=== PATIENT | male | born 1955 | race Caucasian/White ===

== ENCOUNTER 2025-04-30 06:06 | Day surgery (SDC) | payer MEDICARE, OTHER, SELFPAY ==
[2025-04-22 08:45] VITALS: BMI 28.8
[2025-04-30] VITALS (10 sets, daily range): BP systolic 105–129; BP diastolic 62–81; PULSE 61–81; RESP 15–20; TEMP 35.6–36.6; O2SAT 96–100; BMI 27.4
--- NOTE | 2025-04-30 | DI.RAD.S_ITS ---
PROCEDURE: XR HIP W PEL IF DONE LT 2V INDICATIONS: TOTAL LEFT HIP TECHNIQUE: 4 intraoperative fluoroscopic views of the hip acquired. COMPARISON: None. FINDINGS: Bones: Intraoperative fluoroscopic images shows left total hip arthroplasty in progress. IMPRESSION: Fluoro guidance was provided intraoperatively for left total hip arthroplasty performed by the ordering physician. Dictated by: Stefano Maxwell M.D. on 04/30/2025 at 11:08 Approved by: Stefano Maxwell M.D. on 04/30/2025 at 11:09
--- NOTE | 2025-04-30 06:00 | DI.RAD.S_ITS ---
PROCEDURE: XR HIP W PEL IF DONE LT 2V INDICATIONS: GABI TECHNIQUE: AP pelvis and lateral view of the hip acquired. COMPARISON: [facility], CR, XR PELVIS WITH LATERAL HIP LEFT, 12/26/2024, 10:11. [facility], CR, XR HIP W PEL LT 2V, 04/30/2025, 8:59. FINDINGS: Interval left total hip arthroplasty. Acute postsurgical subcutaneous gas along the left thigh. Unchanged alignment of right total hip arthroplasty. No hardware failure. No fracture IMPRESSION: Expected post-operative appearance of a hip arthroplasty. Dictated by: Andrews Knott M.D. on 04/30/2025 at 12:45 Approved by: Andrews Knott M.D. on 04/30/2025 at 12:46
[2025-04-30] MEDS: LACTATED RINGERS 1,000 ML 42 ML IV (06:41)
[2025-04-30] MEDS: CELECOXIB 200 MG CAPSULE PO (06:42)
[2025-04-30] MEDS: ACETAMINOPHEN 325 MG TABLET 975 MG PO (06:42)
[2025-04-30] MEDS: VANCOMYCIN 1,000 MG/200 ML PIGGYBACK 200 MG IV (06:42)
--- NOTE | 2025-04-30 07:41 | PM.PREOP ---
Pre-operative Note Interval Note History & Physical reviewed/Exam performed by Physician: Yes Changes to H&P: No
--- NOTE | 2025-04-30 07:42 | PM.OP.1 ---
Operative Date/Time/Diagnoses Date of procedure: 04/30/25 Time of procedure: 08:00 Pre-op diagnosis: Left hip OA Post-op diagnosis: same Procedure & Clinicians Procedure: Left total hip arthroplasty anterior approach Same procedure(s) as scheduled: Yes Indications: The patient has had progressively worsening left hip pain with radiographic changes consistent with arthritis. Non-operative management has failed and the patient has requested total hip replacement. The risks, benefits and alternatives to surgery were discussed with the patient prior to proceeding. Risks discussed included, but were not limited to, failure to relieve pain, leg length discrepancy, dislocation, stiffness, infection, nerve damage, deep venous thrombosis, pulmonary embolism, stroke, coma, heart attack, permanent paralysis and , as well as the potential need for eventual revision of the prosthetic. Surgeon: Karolyn Ovalle Assisted?: Yes Vocational Coordinator: Jack Parsosn Anesthesia Type: General and Spinal Operative Notes Findings: Severe left hip OA, adequate stability Closure Type: primary Specimen(s): none sent Prosthetic devices, grafts, tissues, transplants, or devices: Ovalle and nephew R3 size 54, neutral poly liner, one 6.5 mm screw, anthology size 7 stem standard offset, 36 x +0 femoral head Applied: none Estimated Blood Loss (mL): 250 Blood products transfused: none Procedure in detail: The patient was brought to the operating room. Patient was carefully positioned in the supine position. Time-out was performed and antibiotics were given. Anesthesia was induced. He was positioned in the on the table in order to allow hyperextension of the hip. The left lower extremity was prepped and draped in a standard sterile fashion. An anterior left hip incision was made 1 fingerbreadth lateral to the anterior superior iliac spine and extended distally towards the greater trochanter. Dissection was carried out through skin and subcutaneous tissues. Superficial hemostasis was achieved. The fascia over the tensor fascia rafael was defined and incised with a knife. Two Allis clamps were used to grasp the fascia. Tensor fascia rafael was retracted laterally. A gelpi retractor was placed. Dissection was carried out down along the neck. The circumflex vessels were carefully identified and cauterized with the Aqua Mantis. A PA was used during the procedure and was essential for intraoperative retraction and safe implantation of the components. There was good visualization of the femoral neck. A Cobra was placed superior to the neck and the gluteus fibers were carefully stripped from that superior aspect of the capsule. A 2nd retractor was placed along the inferior aspect of the neck. The rectus insertion along the capsule was partially released. A 3rd retractor that was then gently placed over the rim of the acetabulum under the rectus. Capsule was carefully incised and released from the intertrochanteric line circumferentially superior to the mid sagittal line and inferiorly to the mid sagittal line until the lesser trochanter was palpable. A tag stitch was placed both in the superior and inferior limb of the capsular insertion. Along the acetabulum capsule was also released up to the mid sagittal 12:00 position. A portion of the labrum was resected. A saw was used to perform an osteotomy at the level of the intertrochanteric line and the junction of the superior femoral neck leaving approximately 1 finger breath of residual inferior neck above the lesser trochanter. A 2nd cut was made along the femoral neck at the base of the head and a napkin ring of neck was removed. Corkscrew was placed in the femoral head and the head was removed without difficulty. Retractors were then repositioned around the acetabulum. Residual labrum was resected and additional osteophytes were removed. A reamer that was 4 mm below the templated size was placed by hand in the acetabulum and it was reamed to centralize the acetabulum. It was then reamed up to 2 under the templated size and fluoroscopy was brought in to confirm the position of the reaming and depth of reaming. I reamed 1 under the anticipated size. A trial cup was placed and noted that it was appropriately sized and fluoroscopy confirmed position and depth. The component was open and inserted without difficulty fluoroscopic imaging was used to confirm that the cup had been adequately seated and was well positioned. It was further stabilized with a single screw. Neutral poly liner was placed. The cup was tested and noted to be stable. Attention was then directed to the femur. The femur was gently hyperextended additional capsular release was performed as needed in order to allow adequate visualization of the proximal femur with elevation of the femur. Patient was placed in a hyperextended slightly adducted position with maximum external rotation. Box osteotome was used to check for any residual neck as well as sclerotic bone along the trochanter. Manila pepper was placed in the femur. Additional broaching was performed. Canal finder was used to determine the alignment of the canal and position. Size 1 broach was placed. The canal was then appropriately broached up to the templated size as long as there was adequate stability of the broach and serial advancement of the broach without excessive impingement. Specific attention was directed at avoiding varus attempting to direct the distal aspect of the broach more anteriorly and avoiding excessive anteversion. Trial reduction showed acceptable range of motion, good stability, no posterior impingement, oriental orthodox of leg length and appropriate lateral shuck. I also hyperflexed the hip and checked that there was no impingement anteriorly and there was good stability with flexion, adduction and internal rotation. Marcaine and Exparel were injected. The stem was placed without difficulty. Repeat trial reduction and x-ray showed acceptable overall position, length, and no evidence of the femoral fracture. Final head was placed. Wound was meticulously irrigated with normal saline. The hip was reduced and additional Exparel and Marcaine were injected. The capsule was closed with interrupted nonabsorbable sutures. The fascia of the tensor was closed with interrupted and running Vicryl. No drain was placed. Any tensor fascia rafael muscle that appeared to be contused or injured which was a minimal amount was carefully resected. Capsule around the tensor was injected with Exparel and Marcaine. The skin was closed with barbed stitches for the subcutaneous tissue and skin. We also used surgical glue. The wound was dressed sterilely. Brief Betadine soak was also used and was meticulously irrigated with normal saline. Patient was transferred to recovery room in satisfactory condition. Complications: none Post-operative Condition: stable Disposition: same day surgery Plan for aftercare: The patient will be maintained on a standard total hip replacement protocol with weight bearing as tolerated and anterior hip precautions. The patient will receive Aspirin and sequential compression devices for DVT prophylaxis. The patient will be discharged home when safe for the home environment.
[2025-04-30] MEDS: TRANEXAMIC ACID 1,000 MG VIAL 1000 MG INJ ×2 (08:09→09:54)
--- NOTE | 2025-04-30 08:29 | SUR.OPER ---
Supine on padded Silvis table with bilateral legs secured in padded positioning boots and suspended in positioning spars, operative leg in traction per surgeon. Head on one pillow. Arm on non-operative side secured on padded armboard <90 degrees abduction. Arm on operative side padded and resting across chest then secured with tape over sheet. Padded perineal post in place per surgeon. Dr. Ovalle in room to assist with positioning, all pressure points padded and covered. Final position approved by surgeon
[2025-04-30] MEDS: BUPivacaine 0.25% W/ EPI (PF) 30 ML VIAL 60 ML INJ (08:32)
[2025-04-30] MEDS: LACTATED RINGERS 1,000 ML 100 ML IV (11:21)
[2025-04-30] MEDS: ACETAMINOPHEN 325 MG TABLET 650 MG PO (13:27)
--- NOTE | 2025-04-30 13:50 | PT.IIE ---
Current Diagnoses Unilateral primary osteoarthritis, left hip (04/30/25) Surgery Performed Operation Date: 04/30/25 07:45 Actual Procedures p Total Hip Arthroplasty/Anterior Approach(Left) - Karolyn Ovalle MD Surgical History (Last Updated 04/22/25 @ 09:09 by Richelle Chavez RN) H/O vasectomy History of bilateral cataract extraction History of total right hip replacement (~2015) Hx of appendectomy (~2006) Hx of hand surgery Medical History (Last Updated 04/22/25 @ 09:09 by Richelle Chavez RN) BCC (basal cell carcinoma) Sarcoidosis of lung (~2016) Physical Therapy Inpatient Evaluation/Re-Eval M1 PT/OT-IP Prior Functional Status Start: 04/30/25 14:47 Freq: NEEDED Status: Discharge Protocol: Document 04/30/25 14:47 [facility] (Rec: 04/30/25 14:58 [facility] Desktop) Medical Review Prior Functional Status Communication I Mobility and Gait Pt states hobbled around. Activities of Daily Pt able to do with ADL and IADL needs. Living and IADL's Social History Household Members spouse Living Arrangements RV Number of Stairs To 4-5 steps with left rail to enter RV. 3 steps with Enter/Railing? right rail to bedroom area. Home Environment Standard Height Toilet,Walk in Shower Home Equipment Front Wheel Walker,Straight Cane,Hand Held Shower Additional Social Pt has supportive to be able to assist him. History Comment M1 PT/OT-IP Prior Functional Status Start: 04/30/25 16:40 Freq: NEEDED Status: Active Protocol: Document 04/30/25 13:50 AB (Rec: 04/30/25 16:55 AB [id number]) Medical Review Prior Functional Status Medical History Yes Reviewed Communication able to make needs known Mobility and Gait pt stated that he was independent with all mobilities and ambulation without AD but unsteady Activities of Daily Pt able to do with ADL and IADL needs. Living and IADL's Social History Household Members spouse Living Arrangements RV Number of Stairs To 5steps with left rail ascending to enter Enter/Railing? 3 steps with right rail to bedroom area Home Environment Standard Height Toilet,Walk in Shower Home Equipment Front Wheel Walker,Straight Cane,Hand Held Shower Additional Social Pt has supportive to be able to assist him. History Comment M2 PT-IP Current Condition Start: 04/30/25 16:40 Freq: NEEDED Status: Active Protocol: Document 04/30/25 13:50 AB (Rec: 04/30/25 16:55 AB [id number]) Physical Therapy Current Condition Current Condition Evaluation Date 04/30/25 Treatment Diagnosis s/p L GABI anterior; difficulty in walking Onset Date 04/30/25 M3 PT-IP Subjective Start: 04/30/25 16:40 Freq: NEEDED Status: Active Protocol: Document 04/30/25 13:50 AB (Rec: 04/30/25 16:55 AB [id number]) Subjective Physical Therapy Visit Type Type Initial Evaluation Visit Start Time 13:50 Visit Stop Time 14:35 Number of BUSINESS SYSTEMS ARCHITECT Visits 0 Physical Therapy Visit Comments Patient Comments agreeable to do PT Therapy Pain Assessment Pain When Pain Assessed At Rest Pain Present Pain Present Pain Reported Location Right Knee Scale Used pain scale not stated Pain Management Distraction,Modification of Treatment,Re-positioning, Techniques Timing of Activity with Medications hip Intensity 5 Scale Used Numeric (0 - 10) Pain Behaviors Facial Grimacing,Guarding Pain Management Modification of Treatment,Re-positioning,Timing of Techniques Activity with Medications M4 PT-IP Mobility and Gait Start: 04/30/25 16:40 Freq: NEEDED Status: Active Protocol: Document 04/30/25 13:50 AB (Rec: 04/30/25 16:55 [id number]) PT-Bed Mobility Assessment Supine to Sit Supine to Sit Standby Assistance PT-Transfer Assessment Sit to and From Stand Sit to and from Minimal Assistance,1 Person Assistance,Use of Upper Stand Extremities Equipment Transfer Assistive Gait Belt,Front Wheeled Walker Device Orthotic/Prosthetic No Devices or Brace: Transfers Transfer Destination Chair Transfer Technique ambulated Transfer Ability Level of Assist Contact Guard Assistance,Minimal Assistance,1 Person Assistance,Use of Upper Extremities Comments Mobility Comments pt in bed and spouse in room. obtained PLOF and home set up. educated pt on L hip anterior precautions and WBAT. BP in supine: 116/76. completed supine to sit SBA. able to sit on EOB SBA. no c/o dizziness. BP sittin/79. sit to stand from EOB min A and cues for techniques. ambulated in room ~ 20 ft using FWW min A and cues for L quads activation. (+) slight L knee buckling and cued pt for quads activation. pt sat back on EOB. pt stated that R knee started having pain since he is compensating a lot due to L hip. caregiver training conducted. spouse was able to put safety belt on. assisted pt with sit to stand and ambulated pt using FWW ~ 60 ft CGA. stair climbing training. educated pt and spouse on how to complete stairs using 1 rail + SPC. pt completed up /down steps mod A and cues using L rail + SPC with first set and PT assisting and cueing. completed again with R rail +SPC and spouse was able to assist pt. pt ambulated ~ 30 ft using FWW CGA and spouse was able to assist. left pt with spouse and OT. Gait Assessment Gait Gait Assistance Contact Guard Assist,Minimum Assistance Required: Distance (Feet) 60 Able to Maintain Yes Weight Bearing Status During Gait Assistive Devices Assistive Device Gait Belt,Front Wheeled Walker Orthotic/Prosthetic No Devices or Brace: Gait Deviations General Gait Pattern Antalgic,Decreased Stride Length Factors Limiting Gait Function Factors Limiting Decreased Activity Tolerance,Decreased Strength, Gait Function Difficulty Following Directions,Limited Range of Motion ,Pain,Poor Balance,Poor Safety Awareness Stair Climbing Assessment Evaluation Level of Assist On Moderate Assistance,1 Person Assistance Stairs Devices Stair Climbing Straight Cane,Left Railing,Right Railing Assistive Devices Technique/Endurance Stair Climbing Ascend and Descend Direction Stair Climbing Step to Step Technique Number of Steps 3 Climbed Query Text: Stair Climbing Set # 2 Repetitions (reps) Comments Stair Climbing refer to mobility section for details Comments PT-Balance Assessment Sitting Balance and Reactions Static Sitting Normal Balance Ability Dynamic Sitting Good Balance Ability Standing Balance and Reactions Static Standing Fair Balance Ability Dynamic Standing Fair Balance Ability Device Used FWW M5 PT-IP Objective Assessments Start: 04/30/25 16:40 Freq: NEEDED Status: Active Protocol: Document 04/30/25 13:50 AB (Rec: 04/30/25 16:55 AB [id number]) Orientation Orientation/Cognition Level of Alertness Alert Orientation Name,Place,Situation Language Function No Deficits Noted Ability Safety Awareness Decreased Safety Awareness Memory Description No Deficits Noted Gross Range of Motion Lower Extremity ROM Assessment Within Functional Limits Strength Lower Extremity Strength Assessment Left Impaired Hip 3-/5 Knee 3+/5 Sensation Assessment Sensation Gross Sensation WNL Muscle Tone Muscle Tone WNL Yes M6 PT-IP Treatment Start: 04/30/25 16:40 Freq: NEEDED Status: Active Protocol: Document 04/30/25 13:50 AB (Rec: 04/30/25 16:55 AB [id number]) Physical Therapy Treatment Exercises Exercises Heel Slides Education Education Provided Precautions,Weight Bearing Status,Post-Op Packet,Safety M7 PT-IP Assessment and Plan Start: 04/30/25 16:40 Freq: NEEDED Status: Active Protocol: Document 04/30/25 13:50 AB (Rec: 04/30/25 16:55 AB [id number]) PT Summary Assessment and Plan Potential Rehabilitation Good Potential Status of Condition Evolving at Evaluation Summary Impairments Pain,ROM,Strength,Balance,Coordination,Sensation,Tone, Cognition,Bed Mobility,Transfers,Gait,Activity Tolerance Assessment Summary pt is a 70 y/o M s/p L GABI POD 0. pt with L hip anterior precautions and is WBAT. pt requiring CGA to min A with transfers and ambulation, mod A with stair climbing using SPC + 1 rail. caregiver training conducted and spouse was able to assist pt with mobility. pt has outpt PT set up. Goals Bed Mobility Goal Independent Transfer Goal Independent,Front Wheeled Walker Gait Goal Independent,Front Wheel Walker Gait Distance 200 Other Goals up/down 5 steps L rail ascending + SPC SBA up/down 3 steps R rail ascending + SPC SBA Days to Meet Goals 5 Frequency of Treatment Frequency Of Twice a Day Treatment Treatment Plan Physical Therapy Bed Mobility Training,Transfer Training,Gait Training, Treatment Plan Therapeutic Exercise,Balance Retraining,Post Op Education,Discharge Planning,Hot or Cold Pack, Neuromuscular Re-ed,Coordination Retraining,Manual Therapy Precautions Anterior Hip No Hip Extension,No Hip External Rotation Precautions Weight Bearing Status Weight Bearing Weight Bear as Tolerated Status Allowed Weight LLE WBAT Bearing Amount ( enter % or #) (%) Recommendations To Nursing Amount of Assist 1 Person Assist Needed Discharge Recommendations PT Discharge Home with Assistance,Outpatient PT Recommendations Transportation Needs Private Vehicle at Discharge - PT assist 1
--- NOTE | 2025-04-30 14:40 | OT.IP.EVAL ---
Current Diagnoses Unilateral primary osteoarthritis, left hip (04/30/25) Surgery Performed Operation Date: 04/30/25 07:45 Actual Procedures p Total Hip Arthroplasty/Anterior Approach(Left) - Karolyn Ovalle MD Past Medical History (Last Updated 04/22/25 @ 09:09 by Richelle Chavez, RN) BCC (basal cell carcinoma) Sarcoidosis of lung (~2016) Surgical History (Last Updated 04/22/25 @ 09:09 by Richelle Chavez RN) H/O vasectomy History of bilateral cataract extraction History of total right hip replacement (~2015) Hx of appendectomy (~2006) Hx of hand surgery Occupational Therapy Inpatient Evaluation/Re-Eval M1 PT/OT-IP Prior Functional Status Start: 04/30/25 14:47 Freq: NEEDED Status: Active Protocol: Document 04/30/25 14:47 [facility] (Rec: 04/30/25 14:58 [facility] Desktop) Medical Review Prior Functional Status Communication I Mobility and Gait Pt states hobbled around. Activities of Daily Pt able to do with ADL and IADL needs. Living and IADL's Social History Household Members spouse Living Arrangements RV Number of Stairs To 4-5 steps with left rail to enter RV. 3 steps with Enter/Railing? right rail to bedroom area. Home Environment Standard Height Toilet,Walk in Shower Home Equipment Front Wheel Walker,Straight Cane,Hand Held Shower Additional Social Pt has supportive to be able to assist him. History Comment M2 OT-IP Current Condition Start: 04/30/25 14:47 Freq: Status: Active Protocol: Document 04/30/25 14:47 [facility] (Rec: 04/30/25 14:58 [facility] Desktop) Occupational Therapy Current Condition Current Condition Evaluation Date 04/30/25 Treatment Diagnosis S/P GABI Anterior approach Diagnosis Onset Date 04/30/25 Post Operative Precautions Other Precautions Do not hyperextend left hip. Weight Bearing Status Weight Bearing Weight Bear as Tolerated Status M3 OT- IP Subjective and Pain Start: 04/30/25 14:47 Freq: Status: Active Protocol: Document 04/30/25 14:47 [facility] (Rec: 04/30/25 14:58 [facility] Desktop) OT- Subjective Occupational Therapy Visit Type Type Initial Evaluation Visit Start Time 14:00 Visit Stop Time 14:40 Occupational Therapy Visit Comments Patient Comments Pt agreed to get up. PT and pt's present for OT eval and caregiver training. Patient/Caregiver TO go home. Goals OT Pain Assessment Pain When Pain Assessed At Rest Pain Present Pain Present Pain Reported Location hip Intensity 5 Scale Used Numeric (0 - 10) M4 OT- IP ADL's Start: 04/30/25 14:47 Freq: Status: Active Protocol: Document 04/30/25 14:47 [facility] (Rec: 04/30/25 14:58 [facility] Desktop) OT ADL-Grooming Comments OT Grooming Comments Not performed. OT ADL-Oral Care Comments Oral Care Comments Not performed. OT ADL-Dressing General Eval Upper Body Dressing Independent Ability Lower Body Dressing Moderate Assistance Ability Areas Needing Socks,Shoes Assistance Comments OT Dressing Comments Able to practice use of household refrigeration mechanic and would also benefit from sock aid. Pt educated to dress the LLE first and take out last. OT ADL-Toileting Comments OT Toileting Suggested to use urinal at night. Comments OT ADL-Bathing Comments OT Bathing Comments Pt states shower is small and has places to hold. Pt states can also use facility's handicapped shower as well. Spoke of care of bandage for showering needs. M5 OT- IP IADL's Start: 04/30/25 14:47 Freq: Status: Active Protocol: Document 04/30/25 14:47 [facility] (Rec: 04/30/25 14:58 [facility] Desktop) OT-Instrumental Activities of Daily Living Meal Preparation Meal Preparation Caregiver Provides Assist Warehouser Warehouser Caregiver Provides Assist M6 OT- IP Functional Cognition Start: 04/30/25 14:47 Freq: Status: Active Protocol: Document 04/30/25 14:47 [facility] (Rec: 04/30/25 14:58 [facility] Desktop) Cognitive Factors Limiting Selfcare Function Cognitive Ability Level of Alertness Alert Patient Orientation Name,Age,Birthday,Month,Date,Year,Day of Week,Place, Situation Attention Span Capable of Focused Attention,Capable of Sustained Ability Attention Ability to Follow Able to Follow One Step Commands Commands Cognitive Comments Cognitive Assessment Pt able to follow ADL and mobility needs. Pt needing Comments reminders for safety needs for mobility and ADL needs. OT- Vision and Hearing OT- Vision Assessment Visual Acuity Glasses For Reading Visual Attentiveness WFL Occular Pursuits WFL M7 OT- IP Mobility and Balance Start: 04/30/25 14:47 Freq: Status: Active Protocol: Document 04/30/25 14:47 [facility] (Rec: 04/30/25 14:58 [facility] Desktop) OT-Transfer Assessment Sit to and From Stand Sit to and from Contact Guard Assistance Stand Transfers Transfer Ability Contact Guard Assistance Technique Transfer Destination Bed,Wheelchair Transfer Technique Stand Step Pivot Devices Transfer Assistive Gait Belt,Front Wheeled Walker Devices Comments Mobility Comments CGA to stand and vc to tighten his LLE. Pt's able to kevin/doff gait belt, assist with ADl's, transfers and stairs with good understanding and safety. OT- Balance Assessment Sitting Balance and Reactions Static Sitting Normal Balance Ability Dynamic Sitting Good Balance Ability Standing Balance and Reactions Static Standing Good Balance Ability Dynamic Standing Fair Balance Ability M8 OT- IP Objective Assessments Start: 04/30/25 14:47 Freq: Status: Active Protocol: Document 04/30/25 14:47 [facility] (Rec: 04/30/25 14:58 [facility] Desktop) OT Gross Range of Motion Upper Extremity Range of Motion Assessment Within Functional Limits OT Strength Upper Extremity Strength Assessment Within Functional Limits M9 OT- IP Assessment and Plan Start: 04/30/25 14:47 Freq: Status: Active Protocol: Document 04/30/25 14:47 [facility] (Rec: 04/30/25 14:58 [facility] Desktop) OT Summary Assessment and Plan Potential Rehabilitation Excellent Potential Analytic Complexity Low at Evaluation Summary OT Impairments Pain,Balance,Functional Mobility,Dressing,Toileting, Bathing,Toilet Transfers,Shower Transfers Progress Towards Progressing Toward Goals Goals Assessment Summary Pt low complexity and main barriers are pain, steps, dressing and showering needs. Pt has a very supportive who was able to to caregiver training with pt for ADL and mobility needs with good safety and understanding. Pt is yet to schedule outpt PT. Pt to go home with assist when medically stable. Goals Self-Feeding Goal Independent Grooming Goal Independent Dressing Goal Independent,Trading Manager Toileting Goal Independent Bathing Goal Minimal Assistance Toilet Transfer Goal Independent Shower Transfer Goal Standby Assistance Days to Meet Goals 3 Treatment Plan OT Treatment Plan ADL Training,Functional Mobility,Patient/Family Education,Discharge Planning Discharge Recommendations OT Discharge Home with 24/ Assist Available,Outpatient PT Recommendations Home Equipment Needs LB dressing equipment Transportation Needs Private Vehicle at Discharge
--- NOTE | 2025-04-30 15:05 | PC.NURSE ---
D/c packet reviewed with pt. Discussed s/s of infection, pain management, how to reduce risk for constipation, and safe use of narcotics. IV removed. Pt exited via w/c with [employer] to private vehicle.
== END 2025-04-30 15:00 | disposition home or self-care (01) ==
LOC: OR 06:08 → AC 06:10
PROVIDERS: Family Provider Family Medicine; Referring Provider Orthopaedic Surgery; Visit Provider Orthopaedic Surgery
PROC: (CPT 27130; principal; 2025-04-30 07:45)
DX: M16.12 Unilateral primary osteoarthritis, left hip (principal); M70.62 Trochanteric bursitis, left hip; M25.752 Osteophyte, left hip; Z96.641 Presence of right artificial hip joint; Z72.0 Tobacco use
CPT/HCPCS: 27130; 73502; 76000; 82962; 97162; 97165; 97530; 97535; C1776; C1713; J0666; J0690; J1100; J2405; J2704; J3010; J3375